=== PATIENT | female | born 1945 | race Caucasian/White ===

== ENCOUNTER 2022-09-29 09:07 | Emergency (ER) | payer MEDICARE ==
[~2022-09-29] VITALS: Ht 162.6 cm; Wt 100.0 kg
--- NOTE | 2022-09-29 09:27 | NUR ---
Patient at CT
[2022-09-29 10:01] LABS: BASOPHILS % (AUTO) 0.6 % (0-1); EOSINOPHILS # (AUTO) 0.3 X10'3 (0-0.9); EOSINOPHILS % (AUTO) 4.8 % (0-6); HEMATOCRIT 42.5 % (35.0-45.0); HEMOGLOBIN 14.1 g/dl (12.0-16.0); LYMPHOCYTES # (AUTO) 1.5 X10'3 (1.1-4.8); LYMPHOCYTES % (AUTO) 21.2 % (21-51); MEAN CORPUSCULAR HEMOGLOBIN 33.4 PG (27.0-31.0); MEAN CORPUSCULAR HGB CONC 33.3 g/dL (33.0-36.5); MEAN CORPUSCULAR VOLUME 100.5 FL (78-98); MEAN PLATELET VOLUME 8.2 FL (7.4-10.4); MONOCYTES # (AUTO) 0.5 X10'3 (0-0.9); MONOCYTES % (AUTO) 7.4 % (2-12); NEUTROPHILS # (AUTO) 4.7 X10'3 (1.8-7.7); PLATELET COUNT 207 X10'3 (140-440); RED BLOOD COUNT 4.23 X10'6 (4.20-5.60); RED CELL DISTRIBUTION WIDTH 13.6 % (11.5-14.5); WHITE BLOOD COUNT 7.1 X10'3 (4.5-11.0)
--- NOTE | 2022-09-29 10:17 | NUR ---
PROVIDER CLEARED PT FROM TRAUMA STATUS AFTER CT RESULTED
[2022-09-29 10:22] LABS: ALANINE AMINOTRANSFERASE 31 U/L (12-78); ALBUMIN 3.1 G/DL (3.4-5.0); ALKALINE PHOSPHATASE 130 IU/L (46-116); ANION GAP 9 (8-16); ASPARTATE AMINO TRANSFERASE 28 U/L (10-37); BILIRUBIN,TOTAL 0.3 MG/DL (0.1-1.0); BLOOD UREA NITROGEN 17 MG/DL (7-18); BUN/CREATININE RATIO 15.6 (10.0-20.0); CHLORIDE 108 MMOL/L (99-107); CREATININE 1.09 MG/DL (0.40-0.90); GLUCOSE 102 MG/DL (70-104); POTASSIUM 3.9 MMOL/L (3.5-5.1); SODIUM 138 MMOL/L (135-145); TOTAL CARBON DIOXIDE 21.3 MMOL/L (24-32); TOTAL PROTEIN 6.3 G/DL (6.4-8.2); eGFR 49 ML/MIN
[2022-09-29 11:40] LABS: CLARITY,URINE CLEAR (Clear); COLOR,URINE YELLOW (Yellow); GLUCOSE, URINE NEGATIVE (Neg); KETONES,URINE NEGATIVE (Neg); LEUKOCYTE ESTERASE ,URINE NEGATIVE (Neg); NITRITES, URINE NEGATIVE (Neg); OCCULT BLOOD,URINE NEGATIVE (Neg); PROTEIN,URINE NEGATIVE (Neg); UROBILINOGEN,URINE 0.2 E.U/dL (0.2-1.0)
[2022-09-29 11:46] LABS: UA COLLECTION TYPE CLN CATCH MIDSTREAM
[2022-09-29 12:59] VITALS: BP 138/74
== END 2022-09-29 13:01 | disposition home or self-care (01) ==
LOC: ER 09:08
DX: R55 Syncope and collapse (principal); W19.XXXA Unspecified fall, initial encounter; Y93.89 Activity, other specified; Y92.89 Other specified places as the place of occurrence of the external cause; Y99.8 Other external cause status
CPT/HCPCS: 36415; 70450; 72125; 80053; 81003; 85025; 93005; 99284

== ENCOUNTER 2025-01-06 23:12 | Inpatient (IN) | payer MEDICARE ==
[~2025-01-06] VITALS: Ht 167.6 cm; Wt 80.0 kg
--- NOTE | 2025-01-06 23:46 | RADIOLOGY REPORT ---
CHEST RADIOGRAPH Indication: aloc Technique: Single frontal view of the chest was obtained COMPARISON: None FINDINGS: Lines and Tubes: None Lungs: Clear Pleura: No effusion. No pneumothorax. Cardiomediastinal contours: Unremarkable Bones: Unremarkable IMPRESSION: 1. No acute disease.
[2025-01-06] MEDS: normal saline 1000ML IV soln IVB ONE (23:47)
--- NOTE | 2025-01-06 23:47 | RADIOLOGY REPORT ---
EXAM: CT CT HEAD INDICATION: aloc TECHNIQUE: CT of the head without intravenous contrast. Radiation Dose : 1. Head: CT Dose: CTDI volume is 53 mGy. Dose-length product is 978 mGy*cm The dose indicators for CT are the volume Computed Tomography (CT) Dose Index (CTDIvol) and the Dose Length Product (DLP), and are measured in units of mGy and mGy-cm, respectively. These indicators are not patient dose, but values generated from the CT scanner acquisition factors. The report includes radiation exposure data for exposures received during this examination. COMPARISON: CT HEAD on DOS: 09/29/22 FINDINGS: Brain: No acute hemorrhage, mass effect, or cerebral edema. Mild burden of periventricular white matter hypodensity. Senescent basal ganglia calcifications. CSF Spaces: Size and morphology within normal limits. Bones/Soft Tissues: No acute findings. Orbits/Sinuses/Mastoids: Unremarkable as visualized. IMPRESSION: 1. No acute intracranial abnormality. Radiation optimization: All CT scans at this facility use at least one of these dose optimization techniques: automated exposure control mA and/or kV adjustment per patient size (includes targeted exams where dose is matched to clinical indication) or iterative reconstruction.
--- NOTE | 2025-01-07 00:05 | Physician Documentation ---
History of Present Illness ~ Chief Complaint: Seizure Stated Complaint: ALOC M ALS Time Seen by MD: 23:16 OK to notify your PCP?: Yes Primary Medical Doctor: steven Source: patient, RN/MD, EMS, RN notes reviewed, EMS notes reviewed, old records Mode of Arrival: EMS HPI This patient has a history of frequent falls. Patient was seen back on 09/29/2022 for falls our facility worked up discharged. Patient apparently is altered once again but also had three seizures today. Patient has significant ecchymosis on her left forehead. The patient was just seen at [facility] on 01/05/2025 after she rolled out of bed and fell hitting her head. Review of those records shows a normal CBC a low potassium of 3.[address] chest abdomen pelvis with contrast was negative. EMS reports that she has had three seizures today. She was doing fine 30 minutes prior to arrival then was found to be altered once again. She does have a history of bipolar disorder seizures hypertension and now was unresponsive she is alert and oriented x1 with a GCS of nine responding to pain with normal vitals there is a walker at home. Not much other information is obtained other than that she has had prior sei zures earlier today. Medication Reconciliation Allergies: Coded Allergies: Sulfa (Sulfonamide Antibiotics) (Verified Allergy, Severe, HIVES, 01/07/25) Past Medical History Past Medical History: Seizures Past Surgical History: noncontributory Alcohol Use: Other Review of Systems ROS Unable to evaluate due to altered mental status Physical Exam Vital Signs: RN Vital Signs have been reviewed: Yes, Temperature: 97.0, Source: Oral, Heart Rate: 77, Respiratory Rate: 18, BP: 142/71, Pulse Oximetry: 96, Weight: 80.000 Oxygen Flow Rate: 0 Physical Exam General: The patient is well developed, well nourished, nontoxic appearing and is in no acute distress. Response to pain Skin: [place], warm and dry with no rashes. HEENT: Head was normocephalic and traumatic. Eyes - pupils equal, round, reactive to light and accommodation. Extraocular movements were intact. Conjunctivae were nonicteric. The mouth and oropharynx were clear with moist mucous membranes. There were no pharyngeal exudates or erythema. Left upper and lower eyelid and left brow with large area of ecchymosis extending to the temporal area Neck: Supple and nontender. There was no jugular venous distention, lymphadenopathy, thyromegaly or masses. Chest: Clear to auscultation bilaterally without wheezes, rales or rhonchi. No accessory muscle use. No dullness to percussion. Heart: Rate regular and rhythmic. S1, S2. No murmurs. Palpation of the chest wall was normal. No rubs or thrills. Abdomen: Soft, nontender and nondistended. Positive bowel sounds. No guarding or rebound. No hepatosplenomegaly or palpable masses. Extremities: No cyanosis, clubbing or edema. The patient moves all extremities. Pulses were equal and symmetric. Neurologic: Motor sensory grossly intact patient responds to painful stimuli o pens eyes no obvious focal findings Psychologic: Opens eyes to pain and voice Progress Results/Orders Reviewed/noted all lab results: Yes Results/Orders Orders - MIKEY KUMAR MD Electrocardiogram (01/06/25 23:16) Chest,Single View (01/06/25 23:36) Ct Head (01/06/25:25) Culture Blood (01/06/25 23:16) Monitor (01/06/25 23:16) Saline Lock (01/06/25 23:16) Hs Troponin I W Calculations (01/07/25 02:16) Straight Cath For Urine Sample (01/06/25:16) Levetiracetam-[id number]/100ml (Levetira (01/07/25 08:00) [place] Prov.Neuro Consult (01/07/25 00:13) Page Hospitalist (01/07/25 00:42) Fill Out Med Reconciliation (01/07/25 00:42) Completed Orders - MIKEY KUMAR MD Cbc/Diff (01/06/25 23:16) Chest,Single View (01/06/25 23:36) Ct Head (01/06/25:25) Ethanol (01/06/25 23:16) Drug Screen, Urine (01/06/25 23:16) Normal Saline 1000ml (0.9% Sodium Chlori (01/06/25 23:20) Hs Troponin I W Calculations (01/06/25 23:16) CMP (01/06/25 23:16) Lacticsepsis (01/06/25 23:16) Ua W/Microscopic, Cult If Ind (01/06/25 23:45) Levetiracetam-[id number]/100ml (Levetira (01/07/25 00:35) Levetiracetam Inj (Keppra Inj) (01/07/25 00:45) Levetiracetam-[id number]/100ml (Levetira (01/07/25 01:00) Medications Received in ER Medications (Trade) Dose Ordered Sig/Ramos Route PRN Reason Start Time Stop Time Status Last Admin Dose Admin (0.9% sodium chloride (NS) 1000ml IV soln) 1,000 ml ONCE ONCE IVB 01/06/25 23:20 01/06/25 23:21 DC 01/06/25 23:47 1,000 ML Levetiracetam 450 ml @ 1,800 mls/hr ONCE ONCE IV 01/07/25 01:00 01/07/25 01:14 DC 01/07/25 01:11 1,800 MLS/HR Vital Signs 01/06/25 01/07/25 01/07/25 23:17 00:02 00:03 Temp 97.0 97.0 Pulse 77 71 Resp 18 14 B/P (MAP) 142/71 150/82 (104) Pulse Ox 96 99 O2 Flow Rate 0 2.0 Laboratory Tests Test 01/06/25 23:45 01/07/25 00:01 Urine Specimen Description Non-specified Urine Color Yellow Urine Clarity Clear Urine pH 6.0 Urine Specific [place] 1.010 Urine Protein Trace Urine Glucose (UA) Negative Urine Ketones 15 H Urine Occult Blood Negative Urine Nitrite Negative Urine Bilirubin Moderate Urine Urobilinogen 2.0 H Urine Leukocyte Esterase Negative Urine RBC None seen Urine WBC None seen Urine Squamous Epithelial Cells Few Urine Bacteria Few Urine Mucus Few Urine Culture Indicated Not ind Volume Urine Centrifuged 10 ml Urine Comment Urine Opiates Screen Negative Urine Methadone Screen Negative Urine Fentanyl Screen Positive H Urine Barbiturates Screen Negative Urine Phencyclidine Screen Negative Urine Amphetamines Screen Negative Urine Benzodiazepines Screen Negative Urine Cocaine Screen Negative Urine Cannabinoids Screen Negative Drug Screen Comment White Blood Count 6.3 Red Blood Count 4.48 Hemoglobin 15.1 Hematocrit 44.9 Mean Corpuscular Volume 100.4 H Mean Corpuscular Hemoglobin 33.7 H Mean Corpuscular Hemoglobin Concent 33.6 Red Cell Distribution Width 15.1 H Platelet Count 296 Mean Platelet Volume 8.4 Neutrophils (%) (Auto) 69.0 Lymphocytes (%) (Auto) 22.5 Monocytes (%) (Auto) 6.7 Eosinophils (%) (Auto) 1.4 Basophils (%) (Auto) 0.4 Neutrophils # (Auto) 4.4 Lymphocytes # (Auto) 1.4 Monocytes # (Auto) 0.4 Eosinophils # (Auto) 0.1 Basophils # (Auto) 0.0 CBC Comment Sodium Level 139 Potassium Level 3.7 Chloride Level 102 Carbon Dioxide Level 28.0 Anion Gap 9 Blood Urea Nitrogen 13 Creatinine 1.10 H Estimated GFR/1.73 m2 48 BUN/Creatinine Ratio 11.8 Glucose Level 105 H Lactic Acid Level 1.4 Calcium Level 9.0 Total Bilirubin 0.9 Aspartate Amino Transf (AST/SGOT) 34 Alanine Aminotransferase (ALT/SGPT) 32 Alkaline Phosphatase 154 H Troponin I High Sensitivity 17 Total Protein 7.1 Albumin 3.5 Globulin 3.6 Albumin/Globulin Ratio 1.0 L Chemistry Comments Ethyl Alcohol Level < 10 Re-Evaluation Re-Evaluation : Re-Evaluation: Improved Progress Patient was seen and examined patient is given reassurance patient appears to be possibly postictal slowly improving with time and becoming slightly more alert. Laboratory work was obtained. Urine appears clear. Tele neurology was consulted patient was given antiseizure medications and will be admitted to the hospitalist service for further workup and care. Patient was given a 4.5 g load of Keppra per Neurology. Labs were obtained CBC is 6.3 and within normal limits although MCV is 100.4 possibility of alcoholism was considered but no signs of infection. Chemistries within normal limits potassium normal at 3.7 magnesium was not ordered. Lactic acid 1.4 troponin 17. Cardiac etiology as well as infectious etiologies unlikely patient does have fentanyl unclear how that happened alcohol is negative urinalysis is negative for urinary tract infection. Patient also was given fluid bolus and then admitted to the hospitalist service after tele neurology consultation. I discussed the case with the hospitalist who kindly agreed to admit the patient for further workup and care. Patient is having prolonged postictal. However she is starting to show some signs of improvement. She does have signs of prior injury without large ecchymosis over the left brow. Continuous bulb tester interpretation shows normal sinus rhythm heart rate 70s, no ectopy, normal, my interpretation. Pulse oximetry monitor interpretation shows normal oxygenation 97% room air, normal, my interpretation. Medical Decision Making Additional info obtained from: old records Differential Dx:Considerations: Include: Hyperventilation, Psychogenic seizure, Due to alcohol withdrawl, Anticonvulsant withdrawl, Due to closed head injury, Due to CVA/TIA, Due to drug ingestion, Due to eclampsia, Due to hypocalcemia, Due to hypoglycemia, Due to hyponatremia, Due to hypoxemia, Idiopathic, Due to mass lesion, Due to meningitis, Syncope, Encephalopathy, Epilepsy-break through, Epilepsy-status, Other Departure Disposition: ADMITTED INPATIENT Admitted to Inpatient Unit: yes, to hospitalist Admission Level of Care: Neuro with Tele Impression: Primary Impression: Altered mental status Qualified Codes: R41.0 - Disorientation, unspecified Additional Impression: Status epilepticus Condition: Critical Referrals: NO PRIMARY CARE PROVIDER (PCP) Critical Care Note Total Time (mins): 30 Critical Care Note The very real possibility of a deterioration of this patient's condition re quired the highest level of my preparedness for sudden, emergent intervention. I provided critical care services, which included medication orders, frequent reevaluations of the patient's condition and response to treatment, ordering and reviewing test results, and discussing the case with various consultants. Excludes time spent performing separately billable procedures. The critical care time associated with the care of the patient was. 30 minutes Signature Scribe Signature: No scribed Attestation: The note accurately reflects work and decisions made by me.Mikey Kumar MD 01/07/25 00:08 MIKEY KUMAR MD Jan 07, 2025 00:05
[2025-01-07 00:12] LABS: MEAN PLATELET VOLUME 8.4 FL (7.4-10.4); RED CELL DISTRIBUTION WIDTH 15.1 % (11.5-14.5)
[2025-01-07 00:17] LABS: LEUKOCYTE ESTERASE ,URINE NEGATIVE (Neg); NITRITES, URINE NEGATIVE (Neg); OCCULT BLOOD,URINE NEGATIVE (Neg)
[2025-01-07 00:19] LABS: UA COLLECTION TYPE NON-SPECIFIED
[2025-01-07 00:24] LABS: URINE AMPHETAMINE SCREEN NEGATIVE (Neg); URINE BARBITUATE SCREEN NEGATIVE (Neg); URINE BENZODIAZEPINES SCREEN NEGATIVE (Neg); URINE CANNABINOID SCREEN NEGATIVE (Neg); URINE COCAINE SCREEN NEGATIVE (Neg); URINE METHADONE SCREEN NEGATIVE (Neg); URINE OPIATE SCREEN NEGATIVE (Neg); URINE PHENCYCLIDINE SCREEN NEGATIVE (Neg)
[2025-01-07 00:25] LABS: CREATININE 1.10 MG/DL (0.40-0.90); TOTAL CARBON DIOXIDE 28.0 MMOL/L (24-32); eCRCL 38 ML/MIN; eGFR 48 ML/MIN
[2025-01-07 00:26] LABS: ETHANOL < 10 MG/DL (<10)
[2025-01-07 00:32] LABS: MUCUS STRANDS FEW /LPF (Neg); SQUAMOUS EPITHELIAL CELL,UR FEW /LPF (FEW)
[2025-01-07] MEDS ORDERED: levetiracetam-NACL1000mg/100ml 100 ML IV ONE (00:35)
[2025-01-07] MEDS ORDERED: NORMAL SALINE IV ONE (00:45)
[2025-01-07] MEDS ORDERED: LEVETIRACETAM IV ONE (00:45)
[2025-01-07] MEDS: LEVETIRACETAM IV ONE (01:11)
[2025-01-07] MEDS: SODIUM CHLORIDE IV ONE (01:11)
[2025-01-07] MEDS ORDERED: METO-411 PO (01:26)
[2025-01-07] MEDS ORDERED: DONE-46 PO (01:26)
[2025-01-07] MEDS ORDERED: CELE-193 PO (01:26)
[2025-01-07] MEDS ORDERED: MEMA10TA22 PO (01:26)
[2025-01-07] MEDS ORDERED: LAMO200T10 PO (01:26)
[2025-01-07] MEDS ORDERED: AMLO5TAB16 PO (01:26)
[2025-01-07] MEDS ORDERED: ATOR20TA66 PO (01:26)
[2025-01-07] MEDS ORDERED: LISI20TA28 PO (01:26)
[2025-01-07] MEDS ORDERED: potassium Cl 20 mEq SR tablet PO PRN ×2 (02:15)
[2025-01-07] MEDS ORDERED: docusate sod 100mg capsule PO PRN (02:15)
[2025-01-07] MEDS ORDERED: magnesium sulf-water 4G/100mL 100 ML IV PRN (02:15)
[2025-01-07] MEDS ORDERED: magnesium sulf-water 2g/50mL 50 ML IV PRN (02:15)
[2025-01-07] MEDS ORDERED: metoclopramide 5 mg/ml inj IV PRN (02:15)
[2025-01-07] MEDS ORDERED: acetaminophen 650mg rectal suppository RC PRN (02:15)
[2025-01-07] MEDS ORDERED: magnesium Cl slow-release 64mg tablet PO PRN (02:15)
[2025-01-07] MEDS ORDERED: magnesium hydroxide 30ml (MOM) UD suspension PO PRN (02:15)
[2025-01-07] MEDS ORDERED: mag hydrox/Alum hydrox/simeth 30ml oral suspension PO PRN (02:15)
[2025-01-07] MEDS ORDERED: potassium Cl 40MEQ/1/2NS 520ml 520 ML IV PRN (02:15)
[2025-01-07] MEDS ORDERED: morphine 4 MG/ML inj SYRINge IV PRN ×2 (02:30)
--- NOTE | 2025-01-07 02:40 | HISTORY AND PHYSICAL-Residence ---
History & Physical Providers to CC Resident Creating Document: MARI THOMPSON, RES ~ History of Present Illness Primary Medical Doctor: steven Reason for Admit\Complaint: Epilepsy History of Present Illness An 79 years old female with a past medical history of frequent ground level fall, history of epilepsy on Keppra, chronic hyperchromic macrocytic anemia, hypertension presented with seizures after she was recently discharged from [facility] for ground level fall in 01/04/2025. Patient was oriented to time, place and person in ER. She noticed that she had terrible seizure before she loss of consciousness. She only remembered-she got the terrible headaches over his right forehead before she passed out from seizure, denies for any other witness of her seizure activity, and also denied for having posticteral loss of bowel and bladder control function, FND, diplopia, tongue bitten, photosensitivity, nuchal aching except for the post seizure confusion and blurred vision. She said that she was taking her prescribed anticonvulsant medications regularly. She denies any abnormal visual/olfactory hallucinations before she got seizures, and abnormal bowel and bladder movements including dysuria, frequency and urgency of urination and loss of perineal sensation. She was recently discharge back from the [facility] for ruling out of the bed and causing ground level fall resulted into terrible bruises over the right frontal forehead and left periorbital area with some ecchymosis over the right neck. In ER, she was altered with GCS around 9 as per ER physician and consultation with teleneuro was done who recommended to provide with IV bolus dosage of Keppra 4.5G. After the bolus Keppra, her conscious levels slowly came back to the orientated status. Allergies: Coded Allergies: Sulfa (Sulfonamide Antibiotics) (Verified Allergy, Severe, HIVES, 01/07/25) Home Medications Home Medications Active Reported Celebrex (Celecoxib) 100 Mg Capsule 100 Mg PO Amlodipine Besylate 5 Mg Tablet 1 Tab PO DAILY Donepezil Hcl 5 Mg Tablet 1 Tab PO DAILY Metoprolol Succinate 100 Mg Tab.sr.24h 1 Tab PO DAILY Atorvastatin Calcium 20 Mg Tablet 1 Tab PO DAILY Memantine HCl 10 Mg Tablet 1 Tab PO BID Lamotrigine 200 Mg Tablet 1 Tab PO BID Lisinopril 20 Mg Tablet 1 Tab PO DAILY Past Medical History Past Medical History frequent ground level falls, history of epilepsy on Keppra, chronic hyperchromic macrocytic anemia, hypertension Past Surgical History Surgical History Comment no significant past surgical history Past Social History Social History Comment She stated that she was living with her family were taking care of her daily routines, no much information were provided Alcohol Use: Other ROS All Other Systems: Reviewed and Negative ROS Constitutional: No fever, chills, dizziness, weakness, weight gain or loss Eyes: No pain, erythema, discharge ENT: No sore throat, epistaxis, tinnitus Cardiovascular: No chest pain, chest pressure, chest discomfort, palpitations, syncope, lower extremity edema, paroxysmal nocturnal dyspnea Respiratory: No shortness of breath, cough, hemoptysis Gastrointestinal: Normal appetite. No nausea, vomiting, diarrhea, constipation, hematemesis, abdominal pain, bloating, melena or fresh blood Genitourinary: No frequency, urgency, nocturia, hematuria or dysuria Musculoskeletal: No arthralgias or myalgias Integumentary: No change in skin, hair, nails. No swelling, bruising, abrasions Neurologic: No neck pain, numbness or tingling of the extremities, weakness Psychiatric: No delusions, depression, loss of interest in normal activity or change in sleep pattern, hallucinations, suicidal ideations Endocrine: No fatigue, weakness, polydipsia, polyuria, change in appetite, heat or cold intolerance, sweating, dry skin Hematological: No bleeding, petechiae, bruising Allergies: No asthma or urticaria Exam Vitals: Vital Signs Date Time Temp Pulse Resp B/P (MAP) Pulse Ox O2 Delivery O2 Flow Rate FiO2 01/07/25 02:00 97.0 71 18 132/58 (82) 97 2.0 General: General: alert, oriented, slightly confused and drowsy, not agitated, not in acute distress, well cooperated during the physical. HEENT: HEENT: terrible bruises over the right frontal forehead and left periorbital area with some ecchymosis over the right neck. Conjunctive are pink, sclerae clear, no icterus, pupil is equal in both sides, reactive to light, no ear discharge, no pharyngeal erythema or an edema, mouth and lips are dry. Neck: Neck: Supple, no JVD, no lymphadenopathy and thyromegaly. Chest: Lungs:Equal air entry on both lungs, no additional sounds Cardiovascular: Heart: S1-S2 regular sinus rhythm and, regular rate, no gallops, no rubs, no murmurs x Abdomen: Abdomen: No visible peristalsis, Bowel sounds present on auscultation, soft, nontender, no guarding, no rigidity Extremities: Extremities: No obvious deformities, no pitting edema bilaterally, capillary refill intact, able to wiggle toes both sides, peripheral pulsations are intact on both sides Central Nervous System: WEB SITE SPECIALIST: No focal neurological deficits, no motor and sensory weakness in all 4 extremities, could move all 4 extremities, bilateral intact hand grisping, and no pronator drift. Musculoskeletal: Musculoskeletal: No joint swelling, deformities, inflammations, and no scoliosis and back tenderness Skin: Skin: No active skin lesions and rashes, bruises and ecchymosis mentioned in the HEENT Diagnostic Data Last Recorded Lab Results: 01/07/25 0001 01/07/25 0001 Advance Care Planning Advanced Care plannin - 30 Minutes Additional Plan An 79 years old female with a past medical history of frequent ground level fall, history of epilepsy on Keppra, chronic hyperchromic macrocytic anemia, hypertension presented with seizures after she was recently discharged from [facility] for ground level fall in 01/04/2025. 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 -UA showed normal and normal EtOH -Urine Tox showed Fentanyl positive -CT Head w/o IV Contrast showed no acute intracranial bleeding -RBS WNL # Hypertension -med rec pending and to continue her usual metoprolol and lisinopril dosage -elevated Creatinine with the baseline around 1.09 # Nonspecific AlkPo4 elevation -normal LFT -ordered GGT CODE STATUS: Full code (she understands the CPR process in details, needs to reassess in the morning in the presence of family) DVT prophylaxis: Subcutaneous heparin 5000 units b.i.d. Analgesia/sedation: IV morphine as needed Lines/tubes: PIV Nutrition: NPO until swallow test past Prognosis: Guarded Disposition: Continue medical management, med rec pending, to continue anticonvulsant home dosage, neuro monitoring, to consider EEG in the morning, PT eval and DC plan. Resident MD attestation: Patient was seen, examined and discussed with attending MD, Dr.Kalassian MARI THOMPSON MD Internal Medicine Resident, PGY3 [facility] Attending Physican Attestation Evaluation via HIPAA compliant A/V device. I discussed the patient with the resident and I agree with the resident's documentation. 79-year-old woman with a known seizure disorder, treated with lamotrigine AED therapy, who now presents with a breakthrough seizure. The treatment plan includes the addition of levetiracetam to the patient's AED regimen at the recommendation of Neurology. Time spent 50 minutes. Date of Service: Jan 07, 2025 Billing Provider: HORTENCIA MICHAEL MD, TIN, RES Jan 07, 2025 02:40 HORTENCIA MICHAEL MD Jan 07, 2025 08:03
[2025-01-07 03:27] LABS: PRO BRAIN NATRIURETIC PEPTIDE 601.0 PG/ML (0-450)
[2025-01-07] MEDS: normal saline 1000ml 1,000 ML IV SCH (03:27)
[2025-01-07 07:35] VITALS: BP 156/64; PULSE 75; RESP 16; TEMP 98; O2SAT 99
[2025-01-07 08:00] VITALS: RESP 16
[2025-01-07] MEDS: heparin, porcine 5000 units/ml vial SQ SCH (08:00)
--- NOTE | 2025-01-07 08:22 | ELECTROCARDIOGRAPH REPORT ---
[facility] Test Date: 2025-01-06 Test Time: 23:15:43 Pat Name: ERMA DAWN Department: [facility] Patient ID: [facility]-[id number] Room: ORTHO [facility] Gender: F Home Support Worker: : 1945 Requested By: MIKEY KUMAR Order Number: [id number] Reading MD: Measurements Intervals [place] Rate: 70 P: 69 OK: 46 QRS: 32 QRSD: 122 T: 42 QT: 436 QTc: 471 Interpretive Statements Sinus rhythm Short OK interval Right atrial enlargement Nonspecific intraventricular conduction delay Borderline ST elevation, lateral leads Artifact in lead(s) I,III,aVL Please click the below link to view image of tracing.
[2025-01-07] MEDS: levetiracetam-NACL1000mg/100ml 100 ML IV SCH (09:28)
[2025-01-07 10:00] VITALS: BP 135/54; PULSE 66; RESP 12; TEMP 97.7; O2SAT 99
[2025-01-07] MEDS: K and/or MAG REPLACEMENT MC SCH (12:07)
--- NOTE | 2025-01-07 16:18 | PROGRESS NOTE ---
Clinical Note Clinical Note Progress Note: Patient admitted today. I reviewed the H&P. 79 years old female with a past medical history of frequent ground level fall, history of epilepsy on Keppra, chronic hyperchromic macrocytic anemia, hypertension presented with seizures after she was recently discharged from [facility] for ground level fall in 01/04/2025. Continue current management. HELENA LOPEZ MD Jan 07, 2025 16:18
--- NOTE | 2025-01-07 16:19 | Visit Coding Note ---
Date of Service: Jan 07, 2025 Billing Provider: HELENA LOPEZ MD Common Visit Codes: NOT BILLABLE HELENA LOPEZ MD Jan 07, 2025 16:19
[2025-01-07 18:00] VITALS: BP 137/59; PULSE 61; RESP 14; TEMP 97.6; O2SAT 98
--- NOTE | 2025-01-07 19:25 | [facility] CONSULT REPORT ---
[facility] Procedure Note [facility] Procedure Note Consult [facility] Note # Demographics Consult Type: General Neurology Patient Location: Emergency Room First Name: Cornelius Last Name: Shelbi Date of : 1945 Age: 79 Gender: Female Facility: [facility] Time of Initial Page (): 01/07/2025 00:16 First Contact with Site (): 01/07/2025 00:16 # HPI History: 79 y/o F with Hx of seizures reportedly compliant on lamotrigine 200mg BID presents with 3 GTCS. # Data Head CT: negative for acute changes # Assessment Impression: - Seizure # Plan Diagnostic Test: - EEG Medication: Keppra 4500mg IV loading dose, then 500mg BID maintenance Other: - If patient has any neurological deterioration please call me back immediately - seizure precautions Additional Recommendations: Avoid sleep deprivation and target 8hrs of sleep Avoid excessive caffeine intake No driving # Logistics Attestation of consult completion: The patient is located at: [facility]. I performed this phone consultation from my offsite office Total time spent in telemedicine encounter: I spent 20 minutes in reviewing clinical data and/or imaging, obtaining history, communicating with the onsite care team, and in preparation of this report. # Demographics First Name: Cornelius Last Name: Shelbi Facility: [facility] Electronically signed at 01/07/2025 19:25 () by Damari Corrales DO Neuro Consult Order placed for: PARAMJIT Matthews DO Jan 07, 2025 19:25
[2025-01-07 20:00] VITALS: RESP 16
[2025-01-07 22:00] VITALS: BP 136/61; PULSE 65; RESP 14; TEMP 97.4; O2SAT 98
[2025-01-08 05:43] LABS: MEAN PLATELET VOLUME 8.2 FL (7.4-10.4); RED CELL DISTRIBUTION WIDTH 15.0 % (11.5-14.5)
[2025-01-08 06:00] VITALS: BP 108/49; PULSE 66; RESP 12; TEMP 97.3; O2SAT 96
[2025-01-08 06:02] LABS: CHOL/HDL RATIO 2.2 (0.00-4.99); CREATININE 0.83 MG/DL (0.40-0.90); LDL CHOLESTEROL 49 MG/DL (50-100); TOTAL CARBON DIOXIDE 28.4 MMOL/L (24-32); eCRCL 51 ML/MIN; eGFR 66 ML/MIN
[2025-01-08 08:00] VITALS: RESP 16
[2025-01-08 10:00] VITALS: BP 126/59; PULSE 71; RESP 16; TEMP 96.4; O2SAT 99
[2025-01-08] MEDS ORDERED: lactose-reduced food (Ensure Enlive) - 237ml bottle PO SCH (13:00)
--- NOTE | 2025-01-08 15:32 | PROGRESS NOTE ---
Daily Progress Note Providers to CC ~ Antibiotic Timeout Antibiotic Ordered?: No Subjective Patient has no new complaints. RN at bedside. Patient is awaiting PT evaluation. Objective Vital Signs Date Time Temp Pulse Resp B/P (MAP) Pulse Ox O2 Delivery O2 Flow Rate FiO2 01/08/25 06:00 97.3 66 12 108/49 (68) 96 Room Air 01/07/25 20:00 0.0 Result Diagram: 01/08/2550601/08/25 050 Gen. awake alert oriented asymptomatic HEENT: Normocephalic, atraumatic, pupils round reactive to light, extraocular movements are intact, sclera anicteric, conjunctiva pinkish, moist oral mucosa, no rash or ulcers. NECK: Supple, no JVD, trachea midline. CHEST: Clear to auscultation, no wheezes crackles or rhonchi. HEART: Regular rate rhythm, no murmur gallop or rub. ABDOMEN: Soft, nontender, no organomegaly. EXTREMITIES: No cyanosis clubbing or edema. NEURO EXAM: Grossly nonfocal. MUSCULOSKELETAL : No joint swelling or deformities. SKIN: No rash or ulcers noted.Left periorbital bruise Other Results Medications reviewed Problem\Assessment\Plan 79 years old female with recurrent falls, has a history of epilepsy, presented to the ER after she had a breakthrough seizure. Patient was recently discharged from [facility] for a ground level fall on 01/04/2025 # recurrent falls: Bedrest. Fall precautions. Seizure precautions. Awaiting PT # breakthrough seizure: Continue Keppra # hypertension: Continue amlodipine, metoprolol and lisinopril # hyperlipidemia: Continue atorvastatin # dementia: Continue Namenda # Code status: Full code # Disposition Per PT recommendations. Date of Service: Jan 08, 2025 Billing Provider: HELENA LOPEZ MD Common Visit Codes: [id number] INP/OBS CARE(HIGH) HELENA LOPEZ MD Jan 08, 2025 15:32
[2025-01-08 18:00] VITALS: BP 155/68; PULSE 69; RESP 20; TEMP 97.8; O2SAT 98
[2025-01-08] MEDS: lactose-reduced food (Ensure Enlive) - 237ml bottle PO SCH (18:35)
[2025-01-08 20:00] VITALS: RESP 15; O2SAT 96
[2025-01-08 22:00] VITALS: BP 139/65; PULSE 72; RESP 15; TEMP 97.6; O2SAT 96
[2025-01-09 06:00] VITALS: BP 126/48; PULSE 73; RESP 15; TEMP 97.5; O2SAT 98
[2025-01-09 06:13] LABS: MEAN PLATELET VOLUME 9.0 FL (7.4-10.4); RED CELL DISTRIBUTION WIDTH 15.3 % (11.5-14.5)
[2025-01-09 06:31] LABS: CREATININE 0.67 MG/DL (0.40-0.90); TOTAL CARBON DIOXIDE 20.8 MMOL/L (24-32); eCRCL 63 ML/MIN; eGFR 85 ML/MIN
[2025-01-09 08:59] VITALS: RESP 16
[2025-01-09 10:00] VITALS: BP 124/52; PULSE 74; RESP 16; TEMP 97.9; O2SAT 99
[2025-01-09] MEDS: ondansetron/PF 4mg/2ml inj IV PRN (12:55)
[2025-01-09 18:00] VITALS: BP 125/42; PULSE 77; RESP 16; TEMP 97.8; O2SAT 96
[2025-01-09] MEDS ORDERED: morphine 4 MG/ML inj SYRINge IV PRN (20:00)
--- NOTE | 2025-01-09 20:00 | PROGRESS NOTE ---
Daily Progress Note Providers to CC ~ Antibiotic Timeout Antibiotic Ordered?: No Subjective Patient is seen in her room she was sitting on the recliner appeared mildly lethargic and response was slow. Her appetite is poor as per nursing staff she is also feeling nauseated. Objective Vital Signs Date Time Temp Pulse Resp B/P (MAP) Pulse Ox O2 Delivery O2 Flow Rate FiO2 01/09/25 18:00 97.8 77 16 125/42 (69) 96 Room Air 01/07/25 20:00 0.0 Result Diagram: 01/09/2551101/09/25511 General-patient not in any acute distress, chronically ill-appearing, appear lethargic HEENT-atraumatic normocephalic, neck supple without elevated JVD, no thyromegaly or carotid bruit. No lymphadenopathy bilaterally. Eyes-no icterus or pallor seen in eyes Chest-clear to auscultation bilaterally, breathing nonlabored no tachypnea, no wheezing, no crepitation, no crackles. Heart-S1-S2 normal, regular heart rate no murmur Abdomen bowel sounds positive on auscultation, soft nondistended nontender no guarding, no rigidity Skin - black eye and bruise present over left side of the forehead and eye Neurology-responded to verbal command slowly and cooperated during physical exam. Patient likely has baseline mild -moderate dementia Extremity- no pedal edema able to move all 4 extremities Problem\Assessment\Plan 79 years old female with recurrent falls, has a history of epilepsy, presented to the ER after she had a breakthrough seizure. Patient was recently discharged from [facility] for a ground level fall on 01/04/2025 # recurrent falls: Bedrest. Fall precautions. Seizure precautions. PT evaluation done she walked 60 ft # breakthrough seizure: on Keppra . Tele neurology consultation done in report reviewed. As per the recommendation Keppra 4500mg IV loading dose, then 500mg BID maintenance, Avoid sleep deprivation and target 8hrs of sleep, Avoid excessive caffeine intake. No driving # hypertension: Continue amlodipine, metoprolol and lisinopril # hyperlipidemia: Continue atorvastatin # dementia: Continue Namenda # Code status: Full code Patient's current condition is guarded I will continue to follow patient in a.m. Date of Service: Jan 09, 2025 Billing Provider: FOUZIA IQBAL MD Common Visit Codes: [id number] INP/OBS CARE(HIGH) FOUZIA IQBAL MD Jan 09, 2025 20:00
[2025-01-09 22:00] VITALS: BP 148/64; PULSE 82; RESP 13; TEMP 97.3; O2SAT 97
[2025-01-10 03:48] VITALS: O2SAT 97
[2025-01-10 06:00] VITALS: BP 138/63; PULSE 75; RESP 12; TEMP 97.3; O2SAT 97
[2025-01-10 06:00] LABS: MEAN PLATELET VOLUME 8.3 FL (7.4-10.4); RED CELL DISTRIBUTION WIDTH 15.1 % (11.5-14.5)
[2025-01-10 06:10] LABS: CREATININE 0.80 MG/DL (0.40-0.90); TOTAL CARBON DIOXIDE 23.1 MMOL/L (24-32); eCRCL 53 ML/MIN; eGFR 69 ML/MIN
[2025-01-10 08:30] VITALS: RESP 18
[2025-01-10 10:00] VITALS: BP 128/59; PULSE 84; RESP 20; TEMP 98; O2SAT 98
--- NOTE | 2025-01-10 19:28 | DISCHARGE SUMMARY ---
Discharge Summary Providers to CC ~ Discharge Summary Admission Diagnosis: EPILEPSY Hospital Course DATE OF ADMISSION: January 07, 2025 DATE OF DISCHARGE: January 10, 2025 CBC testing done on January 10, 2025 WBC 5.5 hemoglobin 12.2 hematocrit 36.0 platelet count 230. Serum chemistry done on January 10, 2025 sodium 143 potassium 3.5 creatinine 0.80 GFR 69 normal liver enzymes. Hemoglobin A1c 4.9. Normal lipid panel, proBNP 601, blood culture showed no growth after three days CHEST,SINGLE VIEWIMPRESSION: 1. No acute disease. CT HEADIMPRESSION: 1. No acute intracranial abnormality. Discharge Diagnosis\Comment: # recurrent falls # seizure disorder # hypertension: # hyperlipidemia: # [id number] dementia: Operations\Procedures: None Consultants: None Complications: None Condition on DC: Stable Discharge Summary: 79 years old female with recurrent falls, has a history of epilepsy, presented to the ER after she had a breakthrough seizure. Patient was recently discharged from [facility] for a ground level fall on 01/04/2025 During hospitalization patient was treated for # recurrent falls: Bedrest. Fall precautions. Seizure precautions. PT evaluation done she walked 60 ft # breakthrough seizure: on Keppra . Tele neurology consultation done in report reviewed. As per the recommendation Keppra 4500mg IV loading dose, then 500mg BID maintenance, Avoid sleep deprivation and target 8hrs of sleep, Avoid excessive caffeine intake. No driving # hypertension: Continued amlodipine, metoprolol and lisinopril # hyperlipidemia: Continued atorvastatin # dementia: Continue Namenda # Code status: Full code Patient is feeling better she has been afebrile and getting discharged to rehab in stable condition. Medication reconciliation done for rehab facility. Patient is seen and examined on the day of discharge. All questions and queries answered to the best of my professional medical knowledge. I heard patient's concerns and address appropriately. production reproduction manager involved in patient's discharge plan. General-patient not in any acute distress, chronically ill-appearing, appear lethargic HEENT-atraumatic normocephalic, neck supple without elevated JVD, no thyromegaly or carotid bruit. No lymphadenopathy bilaterally. Eyes-no icterus or pallor seen in eyes Chest-clear to auscultation bilaterally, breathing nonlabored no tachypnea, no wheezing, no crepitation, no crackles. Heart-S1-S2 normal, regular heart rate no murmur Abdomen bowel sounds positive on auscultation, soft nondistended nontender no guarding, no rigidity Skin - black eye and bruise present over left side of the forehead and eye Neurology-responded to verbal command slowly and cooperated during physical exam. Patient likely has baseline mild -moderate dementia Extremity- no pedal edema able to move all 4 extremities *Problems/Diagnosis: (1) Fall Status: Acute Total Time Spent on D/C: > 30 Minutes Date of Service: Jan 10, 2025 Billing Provider: FOUZIA IQBAL MD Common Visit Codes: 40956-CIY/OBS DISCH DAY >30min FOUZIA IQBAL MD Jan 10, 2025 19:28
== END 2025-01-10 17:45 | DRG 100 ==
LOC: ER 23:12 → ED HOLD 01-07 02:42 → EDBEDREQ 01-07 06:38 → ORTHO 4S 01-07 07:27
PROVIDERS: ADMIT Internal Medicine Critical Care Medicine; ATTEND Internal Medicine
DX: G40.901 Epilepsy, unspecified, not intractable, with status epilepticus (principal); N17.0 Acute kidney failure with tubular necrosis; F03.B0 Unspecified dementia, moderate, without behavioral disturbance, psychotic disturbance, mood disturbance, and anxiety; I10 Essential (primary) hypertension; D53.9 Nutritional anemia, unspecified; Z88.2 Allergy status to sulfonamides
CPT/HCPCS: 36415; 70450; 71045; 80053; 80061; 80305; 80320; 81001; 82977; 83036; 83605; 83735; 83880; 84132; 84484; 85025; 87040; 87081; 92508; 92616; 93005; 96372; 97116; 97161; 97530; 99291; G0378; J1644; J1953; J2405; J7030